=== PATIENT | female | born 1960 | race Caucasian/White ===

== ENCOUNTER 2019-02-05 08:29 | Emergency (ER) | payer OTHER ==
[~2019-02-05] VITALS: Ht 154.9 cm; Wt 106.1 kg
--- OUTSIDE RECORDS SUMMARY | ~2019-02-05 | XMS | Clinical Summary ---
Demographics + + + | Address | [address] | | | [place] [address] | + + + | Home Phone | | + + + | Preferred Language | Unknown | + + + | Marital Status | Single | + + + | Baptism Affiliation | Unknown | + + + | Race | White | + + + | Ethnic Group | Not or | + + + Author + + + | Organization | Unknown | + + + | Address | Unknown | + + + | Phone | Unavailable | + + + Support + + +---------+ + | Name | Relationship | Address | Phone | + + +---------+ + | MING SWAN AND | ECON | Unknown | | | [place] | | | | + + +---------+ + Care Team Providers + +------+ + | Care Passenger Car Upholsterer Apprentice Name | Role | Phone | + +------+ + PP | Unavailable | + +------+ + Source Comments OLIVIA is fully live on both [facility] and [facility] Allergies + + + + + + | Active Allergy | Reactions | Severity | Noted | Comments | | | | | Date | | + + + + + + | Procaine Hcl | | | 10/18/20 | | | | | | 01 | | + + + + + + Current Medications Not on file Active Problems Not on file Social History + +-------+ +--------+------+ | Tobacco Use | Types | Packs/Day | Years | Date | | | | | Used | | + +-------+ +--------+------+ | Never Assessed | | | | | + +-------+ +--------+------+ + + + | Sex Assigned at | Date Recorded | | | | + + + | Not on file | | + + + Plan of Treatment + + + + + | Health Maintenance | Due Date | Last Done | Comments | + + + + + | Influenza (Flu) | | | | | vaccination (#1) | 8 | | | + + + + + Results Not on filefrom Last 3 Months"
--- OUTSIDE RECORDS SUMMARY | ~2019-02-05 | XMS | Clinical Summary ---
Demographics + + + | Address | [address] | | | [place] [address] | + + + | Home Phone | | + + + | Preferred Language | Unknown | + + + | Marital Status | Single | + + + | Catholic Affiliation | Unknown | + + + [...] Team Providers + +------+ + | Care Machine Deburrer Name | Role | Phone | + +------+ + PP | Unavailable | + +------+ + Source Comments OLIVIA is fully live on both [facility] and [facility] Allergies + + + + + [...]
--- OUTSIDE RECORDS SUMMARY | ~2019-02-05 | XMS | Clinical Summary ---
Demographics + + + | Address | [address] | | | [place] [address] | + + + | Home Phone | | + + + | Preferred Language | Unknown | + + + | Marital Status | Unknown | + + + | Quaker Affiliation | Unknown | + + + | Race | Unknown | + + + | Ethnic Group | Unknown | + + + Author + + + | Author | [facility] | | | and [facility] | + + + | Organization | [facility] | | | and [place] | + + + | Address | Unknown | + + + | Phone | Unavailable | + + + Care Team Providers + +------+ + | Care Metal Model Maker Name | Role | Phone | + +------+ + PP | Unavailable | + +------+ + Allergies Not on File Current Medications Not on file Active Problems [...] | + + + + + | Vaccine: | | | | | Dtap/Tdap/Td (1 - | 8 | | | | Tdap) | | | | + + + + + | Cervical Cancer | | | | | Screening (Pap) | 9 | | | + + + + + | Vaccine: Zoster (1 | | | | | of 2) | 9 | | | + + + + + | Vaccine: Influenza | | | | | (#1) | 8 | | | + + + + + Results Not on filefrom Last 3 Months"
--- OUTSIDE RECORDS SUMMARY | ~2019-02-05 | XMS | Clinical Summary ---
Demographics + + + | Address | [address] | | | [place] [address] | + + + | Home Phone | | + + + | Preferred Language | Unknown | + + + | Marital Status | Unknown | + + + | Temple Affiliation | Unknown | + + + | Race | Unknown | + + + | Ethnic Group | Unknown | + + + Author + + + | Author | [facility] | | | and [facility] | + + + | Organization | [facility] | | | and [place] | + + + | Address | Unknown | + + + | Phone | Unavailable | + + + Care Team Providers + +------+ + | Care Cellophaner Name | Role | Phone | + [...]
[2019-02-05] MEDS ORDERED: LATANOPROST2.5 ML OPTH (08:58)
[2019-02-05] MEDS ORDERED: TIMOLOL MALEATE5 M2 OP (08:58)
--- NOTE | 2019-02-05 19:08 | EKG ---
[facility] [address] [place], [place] [address] Signed Sinus bradycardia Possible Left atrial enlargement Borderline ECG No previous ECGs available Confirmed by PIO PIERSON DO ([id number]) on 02/05/2019 7:08:15 PM Electronically Signed By: PIO PIERSON DO 02/05/19 1908 PATIENT NAME: JULISA SWAN WINSTON Electrocardiogram DATE OF : 58 PHYSICIAN: PIO PIERSON DO REPORT #: [id number] REPORT IS CONFIDENTIAL AND NOT TO BE RELEASED WITHOUT AUTHORIZATION
== END 2019-02-05 10:46 | disposition home or self-care (01) ==
LOC: ED 08:29
DX: R10.13 Epigastric pain (principal); R10.11 Right upper quadrant pain; R10.12 Left upper quadrant pain; Z98.84 Bariatric surgery status; Z88.4 Allergy status to anesthetic agent
CPT/HCPCS: 80053; 83690; 84484; 85025; 93005; 93010; 99284-25

== ENCOUNTER 2024-12-26 11:07 | Day surgery (SDC) | payer MEDICARE, OTHER ==
[~2024-12-26] VITALS: Ht 154.9 cm; Wt 104.5 kg
--- NOTE | ~2024-12-26 | OR ---
[facility] [address] [place], [place] [address] Draft DATE OF OPERATION: 12/26/2024 SURGEON: Frank Handley MD PREOPERATIVE DIAGNOSIS: History of tubular adenoma at 25 cm in 2022. POSTOPERATIVE DIAGNOSIS: Polyps x2. PROCEDURES: Total colonoscopy to cecum with cold morcellation polypectomy x2. ANESTHESIA: Intravenous sedation; fentanyl 100 mcg, Versed 6 mg. INDICATION: This 64-year-old white woman is a patient of Venkata Blas and underwent colonoscopy in 2022 for positive Cologuard test. She had family history of colon cancer in a paternal uncle. She has no current symptoms of bleeding, diarrhea or constipation. She is admitted for short-term surveillance colonoscopy based on previous findings. She understands the risk of bleeding, infection, and perforation. FINDINGS: The prep was good. Complete colonoscopy was undertaken of the cecum. There were two small polyps right-sided and rectal, both of which were probably adenomatous. There were no other findings of note. DESCRIPTION OF PROCEDURE: The patient was brought to the endoscopy suite and placed in the lateral decubitus position, given intravenous sedation to the point of slurred speech and nystagmus. Full cardiopulmonary monitoring was maintained. Digital rectal examination was normal. An Olympus video colonoscope was passed in the rectum and manipulated throughout the colon ultimately intubating the cecum itself. The scope was withdrawn from that point and in the distal ascending colon there was a small adenomatous appearing polyp. This was excised with cold morcellation technique completely. The scope was further withdrawn and no other findings until the rectum where a small adenomatous appearing mid rectal polyp was noted, this was excised with cold morcellation technique as well. Retroflexed view was otherwise normal. The scope was removed and the patient was taken PATIENT NAME: JULISA SWAN OPERATIVE REPORT DATE OF : 58 REPORT #: [id number] PHYSICIAN: FRANK HANDLEY MD PCP: VENKATA BLAS REPORT IS CONFIDENTIAL AND NOT TO BE RELEASED WITHOUT AUTHORIZATION [address] [place], [place] [address] Draft to the recovery room in good condition. CONCLUDING DIAGNOSIS: Polyps x2. PLAN: Recommend repeat colonoscopy in 5 to 7 years based on current clinical guidelines, sooner if symptoms should develop. She will return to the ongoing care of Venkata Blsa. MD SANTOS Ramos/WINNIE /[id number] cc: Venkata Blas PA-C Copies: VENKATA BLAS ~ PATIENT NAME: ZEYAD SWANDeb MONTERO OPERATIVE REPORT DATE OF : 58 REPORT #: [id number] PHYSICIAN: FRANK HANDLEY MD PCP: VENKATA BLAS PAC REPORT IS CONFIDENTIAL AND NOT TO BE RELEASED WITHOUT AUTHORIZATION
[~2024-12-26 11:07] MED LIST: ACETAMINOPHEN500 M1 PO; CEFAZOLIN SODIUM 2 GM/20 ML SYR IV SCH; CEFPROZIL500 MG PO; CELEBREX200 MG PO; CELECOXIB200 MG PO; CEPHALEXIN500 MG PO; GABAPENTIN300 MG PO; GABAPENTIN600 MG PO; IBLOOD GLUCOSE TEST STRIP 1 EA TEST VI PRN; KLOR-CON 1010 MEQ PO; LACTATED RINGER'S 1,000 ML IV SCH; LASIX20 MG; LATANOPROST2.5 ML OPTH; LIDOCAINE HCL 1% 5 ML SDV INJ ONE; MAGNESIUM200 MG PO; MELOXICAM15 MG PO; MIDAZOLAM HCL 5 MG/5 ML VIAL IV PRN; MULTI VITAMIN1 EACH PO; MULTIVITAMIN1 EACH PO; OXYCODONE HCL5 MG PO; SENNA LAX8.6 MG PO; TIMOLOL MALEATE5 M2 OP; TRIAMCINOLONE A15 GM TOP; VENTOLIN HFA18 GM; VITAMIN C1000 M2 PO; VITAMIN C500 M1 PO; VITAMIN D31250 MC1 PO; VITRON-C TABLE1 EACH; XARELTO10 MG PO; fentaNYL citrate 100 MCG/2 ML VIAL IV PRN
[2024-12-26 11:23] VITALS: BP 126/58
[2024-12-26] MEDS ORDERED: COSOPT PF EYE1 EACH OPTH (11:25)
[2024-12-26] MEDS ORDERED: K2 PLUS D3 TAB1 EACH PO (11:26)
[2024-12-26] MEDS ORDERED: MIDAZOLAM HCL 5 MG/5 ML VIAL ONE (12:21)
[2024-12-26] MEDS ORDERED: fentaNYL citrate 100 MCG/2 ML VIAL ONE (12:21)
--- NOTE | 2024-12-26 13:21 | NUR ---
12/26/24 [address] OXYGEN SATURATION REMAINS 100% ON 3L VIA NC. OXYGEN IS TURNED OFF @ THIS TIME.
[2024-12-26 13:46] VITALS: BP 120/75
--- NOTE | 2024-12-28 12:10 | PATH ---
[facility] [address] [place], [place] [address] Signed SPECIMEN(S): A ASCENDING COLON POLYP SPECIMEN(S): B RECTAL POLYP SPECIMEN SOURCE: A. ASCENDING COLON POLYP B. RECTAL POLYP CLINICAL HISTORY: Personal history of colon polyps. FINAL PATHOLOGIC DIAGNOSIS: A. Ascending colon polyp: - Tubular adenoma (two fragments). B. Rectal polyp: - Hyperplastic polyp (two fragments). JVR:[facility] MICROSCOPIC EXAMINATION: Histologic sections of all submitted blocks are examined by light microscopy. These findings, together with the gross examination, support the pathologic diagnosis. GROSS DESCRIPTION: A. The specimen, labeled and designated "Rajan, ascending colon polyp," is received in formalin and consists of three smart soft tissue fragments, ranging from 0.1 cm. Entirely submitted in (A1). B. The specimen, labeled and designated "Rajan, rectal polyp," is received in formalin and consists of three smart soft tissue fragments, ranging from 0.1 cm. Entirely submitted in (B1). JS (under the direct supervision of a pathologist) The Gross Description was prepared using a voice recognition system. The report was reviewed for accuracy; however, sound-alike word errors, addition and/or deletions may occur. If there is any question about this report, please contact Client Services. PERFORMING LABORATORY: Technical component was performed by [facility], [address] [place] [id number] (CLIA# [id number]). Professional interpretation was performed by [employer] Pathology - [facility], [address] [place] [address], [place] [address] (CLIA#: [id number]). PATIENT NAME: JULISA SWAN PATHOLOGY DATE OF : 58 REPORT #: [id number] PHYSICIAN: [facility] PATHOLOGY PCP: VENKATA PERAZA PAC REPORT IS CONFIDENTIAL AND NOT TO BE RELEASED WITHOUT AUTHORIZATION [facility] [address] [place] [id number] Signed Diagnostician: Jaden Cisneros MD Pathologist Electronically Signed 12/28/2024 Copies: ~ PATIENT NAME: JULISA SWAN PATHOLOGY DATE OF : 58 REPORT #: [id number] PHYSICIAN: [facility] PATHOLOGY PCP: VENKATA PERAZA PAC REPORT IS CONFIDENTIAL AND NOT TO BE RELEASED WITHOUT AUTHORIZATION
== END 2024-12-26 13:54 | disposition home or self-care (01) ==
LOC: DS 11:07
PROVIDERS: ATTEND Surgery
PROC: 0DBK8ZZ Excision of Ascending Colon, Via Natural or Artificial Opening Endoscopic (ICD-10-PCS; principal; 2024-12-26 12:00)
DX: Z12.11 Encounter for screening for malignant neoplasm of colon (principal); D12.2 Benign neoplasm of ascending colon; K62.1 Rectal polyp; E11.9 Type 2 diabetes mellitus without complications; I10 Essential (primary) hypertension; Z86.0100 Personal history of colon polyps, unspecified; Z88.4 Allergy status to anesthetic agent; Z79.899 Other long term (current) drug therapy; Z98.84 Bariatric surgery status; Z80.0 Family history of malignant neoplasm of digestive organs
CPT/HCPCS: 99153; G0500; J0690; J2250; J3010; J7121